=== PATIENT | female | born 1985 | race American Indian/Alaskan Native ===

== ENCOUNTER 2019-02-16 23:09 | Emergency (ER) | payer OTHER ==
--- NOTE | 2019-02-16 23:40 | Emergency Department Report ---
ED Psych HPI - General Chief Complaint: Psych Stated Complaint: SUICIDAL IDEATIONS Time Seen by Provider: 02/16/19 23:20 Source: patient Mode of arrival: Ambulatory - History of Present Illness Initial Comments: Patient is a 33-year-old female that presents emergency room with complaints of suicidal ideations with the plan. Patient states she is depressed and anxious. Patient denies audiovisual hallucinations. Patient denies homicidal ideation. Patient states her plan is to overdose on pills. Patient states she does not want to live anymore. MD Complaint: suicidal ideation, feels depressed -: Sudden Associated Psychiatric Symptoms: depression, suicidal ideation History of same: Yes Quality: constant Improves With: none Worsens With: none Context: significant life stressor Associated Symptoms: denies other symptoms. denies: confusion, headache, shortness of breath, nausea, vomiting, syncope, insomnia If Self Harm: admits thoughts of, has plan - Related Data Allergies Allergy/AdvReac Type Severity Reaction Status Date / Time No Known Allergies Allergy Unverified 02/16/19 23:12 ED Review of Systems ROS: Stated complaint: SUICIDAL IDEATIONS Other details as noted in HPI Constitutional: denies: chills, fever Eyes: denies: eye pain, eye discharge, vision change ENT: denies: ear pain, throat pain Respiratory: denies: cough, shortness of breath, wheezing Cardiovascular: denies: chest pain, palpitations Endocrine: no symptoms reported Gastrointestinal: denies: abdominal pain, nausea, diarrhea Genitourinary: denies: urgency, dysuria, discharge Musculoskeletal: denies: back pain, joint swelling, arthralgia Skin: denies: rash, lesions Neurological: denies: headache, weakness, paresthesias Psychiatric: anxiety, depression, suicidal thoughts. denies: auditory hallucinations, visual hallucinations, homicidal thoughts Hematological/Lymphatic: denies: easy bleeding, easy bruising ED Past Medical Hx - Past Medical History Previous Medical History?: Yes Hx Psychiatric Treatment: Yes (Anxiety) Additional medical history: endometriosis - Surgical History Past Surgical History?: Yes Additional Surgical History: myomectomy - Family History Family history: no significant - Social History Smoking Status: Never Smoker Substance Use Type: Alcohol, Marijuana ED Physical Exam - General Limitations: No Limitations General appearance: alert, in no apparent distress - Head Head exam: Present: atraumatic, normocephalic - Eye Eye exam: Present: normal appearance - ENT ENT exam: Present: mucous membranes moist - Neck Neck exam: Present: normal inspection - Respiratory Respiratory exam: Present: normal lung sounds bilaterally. Absent: respiratory distress - Cardiovascular Cardiovascular Exam: Present: regular rate, normal rhythm. Absent: systolic murmur, diastolic murmur, rubs, gallop - GI/Abdominal GI/Abdominal exam: Present: soft, normal bowel sounds - Rectal Rectal exam: Present: deferred - Extremities Exam Extremities exam: Present: normal inspection - Back Exam Back exam: Present: normal inspection - Neurological Exam Neurological exam: Present: alert, oriented X3 - Psychiatric Psychiatric exam: Present: depressed, flat affect, suicidal ideation - Skin Skin exam: Present: warm, dry, intact, normal color. Absent: rash ED Course Vital Signs 02/16/19 23:15 Temperature 98.4 F Pulse Rate 85 Respiratory 16 Rate Blood Pressure 137/90 O2 Sat by Pulse 98 Oximetry - Reevaluation(s) Reevaluation #1: Initial evaluation done. Patient warrants a 1013 for suicidal ideation with a plan. Patient's plan is to OD on pills. Patient will be an ER hold. Labs were begun. 02/16/19 23:39 Patient is medically clear. Patient will remain in the ER as an ER hold and on a 1013 and soaks into appropriate psychiatric facility. 02/17/19 01:22 ED Medical Decision Making - Lab Data Result diagrams: 02/16/19 23:38 02/16/19 23:38 - Medical Decision Making Patient is a 33-year-old female that presents emergency room with complaints of suicidal ideation with a plan. Patient is to overdose on pills. Patient placed on a 1013. Patient had labs done and they were all unremarkable. Patient seen by mental health. Patient placed on 1013. Patient remained in the ER until exception to appropriate psychiatric facility. Patient is medically cleared - Differential Diagnosis si. [email or web address] Critical care attestation.: If time is entered above; I have spent that time in minutes in the direct care of this critically ill patient, excluding procedure time. ED Disposition Clinical Impression: Anxiety, Suicidal ideation Depression Qualifiers: Depression Type: unspecified Qualified Code(s): F32.9 - Major depressive disorder, single episode, unspecified Disposition: [id number]/TX-65 PSY HOSP/PSY UNIT Is pt being admited?: No Does the pt Need Aspirin: No Condition: Stable Additional Instructions: Patient is medically cleared Time of Disposition: 01:30
[2019-02-17 00:07] LABS: BUN/Creatinine Ratio 8; Blood Urea Nitrogen 6 mg/dL (7-17); Calcium 9.1 mg/dL (8.4-10.2); Hemolysis Index 6
[2019-02-17 00:13] LABS: Hematocrit 41.2 % (30.3-42.9); Hemoglobin 13.7 gm/dl (10.1-14.3); Mean Corpuscular HGB Conc 33 % (30-34); Mean Corpuscular Volume 86 fl (79-97); Platelet Count 368 K/mm3 (140-440); Red Blood Count 4.81 M/mm3 (3.65-5.03); Red Cell Distribution Width 15.3 % (13.2-15.2)
[2019-02-17 01:43] LABS: Amphetamine Screen,Urine PRESUMPTIVE NEGATIVE; Benzodiazepines Screen,Urine PRESUMPTIVE NEGATIVE; Cannabinoid Screen,Urine PRESUMPTIVE NEGATIVE; Cocaine Screen,Urine PRESUMPTIVE NEGATIVE; Methadone Screen,Urine PRESUMPTIVE NEGATIVE; Opiate Screen,Urine PRESUMPTIVE NEGATIVE
[2019-02-17 02:17] LABS: Bilirubin,Urine NEG (Negative); Blood,Urine NEG (Negative); Mucus,Urine 3+ /HPF
[2019-02-17 02:20] LABS: Color,Urine Yellow (Yellow)
[2019-02-17 02:23] LABS: HCG Qualitative,Urine Negative (Negative)
[2019-02-17] MEDS: NORETHINDRONE 5 MG PO SCH (11:18)
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
[2019-02-17] MEDS ORDERED: ATIVAN PO ONE (18:00)
[2019-02-17] MEDS ORDERED: TYLENOL ONE (21:06)
[2019-02-17] MEDS ORDERED: TYLENOL PO PRN (21:41)
[2019-02-18] MEDS ORDERED: ATIVAN ONE (06:03)
[2019-02-18] MEDS: NORETHINDRONE 5 MG PO SCH (11:43)
[2019-02-18] MEDS: PROzac PO SCH (11:43)
[2019-02-18] MEDS ORDERED: TORADOL IM ONE (16:03)
--- NOTE | 2019-02-18 18:01 | Progress Note ---
Subjective - Reason for Consult Consult date: 02/18/19 Reason for consult: follow up - Chief Complaint Chief complaint: "I'm about the same." She reports the last two years she has been depressed due to endometriosis which causes her debilitating pain. She has been unable to maintain employment for the past two years and has been forced to to return home to live with her parents. She says her mother is only somewhat supportive and has been pushing her to get a job. She reports symptoms of hopelessness, helplessness, and feelings of low self worth. She continues to have suicidal ideation with a plan to overdose and states she needs a higher level of care. Mental Status Exam - Vital signs Last Vital Signs Temp 98.1 F 02/18/19 12:00 Pulse 76 02/18/19 12:00 Resp 16 02/18/19 12:00 BP 130/76 02/18/19 12:00 Pulse Ox 99 02/18/19 12:00 - Exam Narrative exam: Orientation: time, place, person Affect: depressed, anxious Mood: congruent with affect Thought content: other (suicidal ideation with a plan to overdose) Thought Process: Intact Perceptions: none Speech: normal rate and pattern Concentration: distractible Motor activity: normal Level of consciousness: alert Memory: Intact Sleep Symptoms: Difficulty Falling Asleep (erratic sleep pattern, sleeping more today), Nightmares Appetite: decreased (erratic eating pattern) Interaction: cooperative Assessment and Plan Impression: suicidal ideation with a plan to overdose Major depressive disorder, severe, recurrent PTSD Recommendations: prozac 20mg daily for depression/ptsd. She was informed of risks/benefits. She is agreeable. trazodone prn dispo: continue 1013 and transfer to inpatient psychiatric facility staffed with Dr. Packer
[2019-02-18] MEDS ORDERED: DESYREL PO PRN (18:02)
[2019-02-19] MEDS: PROzac PO SCH (10:50)
[2019-02-19] MEDS: NORETHINDRONE 5 MG PO SCH (10:50)
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
[2019-02-20 03:07] VITALS: BP 105/64
== END 2019-02-20 03:36 ==
LOC: EEVIPCON 23:09 → ED 23:09
DX: F32.3 Major depressive disorder, single episode, severe with psychotic features (principal); F43.10 Post-traumatic stress disorder, unspecified; F41.9 Anxiety disorder, unspecified; F12.10 Cannabis abuse, uncomplicated
CPT/HCPCS: 36415; 80048; 80307; 81001; 81025; 84703; 85025; G0480; J1885; 80320; 96372